=== PATIENT | female | born 1935 | race Caucasian/White ===

== ENCOUNTER 2019-07-19 04:20 | Observation (INO) ==
[2019-07-19] MEDS ORDERED: SODIUM CHLORIDE 0.9% 500 ML IV STA (04:40)
[2019-07-19 05:11] LABS: Basophils # 0.1 10*3/uL (0.0-0.2); Basophils % 0.9 % (0.0-0.8); Eosinophils # 0.1 10*3/uL (0.0-0.87); Eosinophils % 1.8 % (0.00-10.9); Hematocrit 30.7 VOL% (35.7-47.0); Hemoglobin 9.4 GM/DL (12.0-16.0); Immature Granulocytes % 0.4 %; Immature Granulocytes Absolute 0.02 #; Lymphocytes # 1.2 10*3/uL (1.4-4.0); Lymphocytes % 20.7 % (21.3-54.2); Mean Corpuscular HGB Conc 30.6 GM/DL (32-36); Mean Corpuscular Volume 88.2 FL (87-102); Mean Platelet Volume 9.3 FL (9.6-12.0); Monocytes % 8.3 % (1.7-12.7); Neutrophils % 67.9 % (38.7-73.9); Platelet Count 187 T/CUMM (130-400); Red Blood Count 3.48 MC/CUMM (3.8-5.5); Red Cell Distribution Width 14.6 % (9.3-17.3); White Blood Count 5.6 T/CUMM (4-12)
[2019-07-19 05:14] LABS: PT Patient Result 10.9 SECS (9.6-12.2)
[2019-07-19 05:28] LABS: Alanine Aminotransferase 17 U/L (13-56); Albumin 3.8 G/DL (3.4-5.0); Alkaline Phosphatase 97 U/L (45-117); Aspartate Amino Transferase 20 U/L (0-37); Blood Urea Nitrogen 26 MG/DL (7-18); Calcium 8.7 MG/DL (8.5-10.1); Estimated Glom Filtration Rate 43 ML/MIN; Glucose 115 MG/DL (74-106); Osmolality,Calculated 278.8 MOS/KG (273-304); Total Protein 6.8 G/DL (6.4-8.3)
[2019-07-19 06:06] LABS: Apearance,Urine CLEAR (Clear); Bacteria,Urine Occasional /HPF (Few); Bilirubin,Urine Negative (Negative); Blood, Urine Small mg/dL (Negative); Glucose,Urine (UA) Negative (Negative); Ketones,Urine 5 mg/dL (Negative); Mucus,Urine Occasional /LPF (Occasional); Nitrite,Urine Negative (Negative); Protein,Urine Negative; RBC,Urine 5 /HPF (0-4); Squamous Epithelial Cell,Urine Occasional /HPF (0-10); Urine Color Yellow (Yellow); Urine Specific Gravity 1.011 (1.001-1.035); Urine Urobilinogen < 2.0 EU/DL (0.2-1.0); WBC,Urine 8 /HPF (0-6)
[2019-07-19 06:12] LABS: Barbiturates Screen,Urine Negative (Negative); Benzodiazepines Screen,Urine Negative (Negative); Cannabinoid Screen,Urine Negative (Negative); Opiate Screen,Urine Negative (Negative); Phencyclidine Screen,Urine Negative (Negative)
[2019-07-19] MEDS ORDERED: ONDANSETRON 4 MG/2 ML VIAL IV PRN (06:15)
[2019-07-19] MEDS ORDERED: ACETAMINOPHEN 325 MG TABLET PO PRN (06:15)
[2019-07-19] MEDS ORDERED: BISACODYL 5 MG TABLET PO PRN (06:15)
[2019-07-19] MEDS ORDERED: SODIUM CHLORIDE 0.9% 1,000 ML IV SCH (07:00)
[2019-07-19] MEDS: cefTRIAXone 1,000 MG in SYRINGE 1 EACH IV SCH (07:17)
[2019-07-19] MEDS ORDERED: ZALEPLON 5 MG CAPSULE PO PRN (14:57)
[2019-07-19] MEDS: OLANZapine 2.5 MG TABLET PO SCH (15:13)
[2019-07-19] MEDS: carvediloL 12.5 MG TABLET PO SCH ×2 (15:13→17:41)
[2019-07-19] MEDS ORDERED: LORazepam 2 MG/1 ML VIAL IV ONE (16:48)
[2019-07-20] MEDS: lisinopriL 5 MG TABLET PO SCH ×2 (02:44→21:04)
[2019-07-20] MEDS: MULTIVITAMIN (INTRINSIC) CAPSULE PO SCH ×3 (02:44→21:33)
[2019-07-20] MEDS: OLANZapine 2.5 MG TABLET PO SCH ×4 (02:44→21:04)
[2019-07-20] MEDS: AMIODARONE 200 MG TABLET PO SCH ×3 (02:44→21:05)
[2019-07-20] MEDS: OXcarbazepine 300 MG TABLET PO SCH ×3 (02:44→21:05)
[2019-07-20] MEDS: cefTRIAXone 1,000 MG in SYRINGE 1 EACH IV SCH (06:14)
[2019-07-20 06:19] LABS: Basophils % 0.7 % (0.0-0.8); Eosinophils # 0.2 10*3/uL (0.0-0.87); Eosinophils % 3.4 % (0.00-10.9); Hematocrit 32.2 VOL% (35.7-47.0); Hemoglobin 9.9 GM/DL (12.0-16.0); Immature Granulocytes % 0.2 %; Immature Granulocytes Absolute 0.01 #; Lymphocytes # 1.4 10*3/uL (1.4-4.0); Lymphocytes % 31.5 % (21.3-54.2); Mean Corpuscular HGB Conc 30.7 GM/DL (32-36); Mean Corpuscular Volume 88.5 FL (87-102); Mean Platelet Volume 9.3 FL (9.6-12.0); Neutrophils % 53.2 % (38.7-73.9); Platelet Count 175 T/CUMM (130-400); Red Blood Count 3.64 MC/CUMM (3.8-5.5); Red Cell Distribution Width 14.3 % (9.3-17.3); White Blood Count 4.5 T/CUMM (4-12)
[2019-07-20 07:04] LABS: Calcium 8.7 MG/DL (8.5-10.1); Osmolality,Calculated 281.4 MOS/KG (273-304)
[2019-07-20] MEDS: ATORVASTATIN 40 MG TABLET PO SCH (10:40)
[2019-07-20] MEDS: POTASSIUM CHLORIDE 20 MEQ TABLET PO SCH (10:40)
[2019-07-20] MEDS: ASPIRIN EC 325 MG TABLET PO SCH (10:40)
[2019-07-20] MEDS: DONEPEZIL 5 MG TABLET PO SCH (10:41)
[2019-07-20] MEDS: carvediloL 12.5 MG TABLET PO SCH ×2 (10:41→16:46)
[2019-07-20] MEDS: hydroCHLOROthiazide 12.5 MG CAPSULE PO SCH (10:41)
[2019-07-20] MEDS ORDERED: LORazepam 0.5 MG TABLET PO ONE (15:38)
[2019-07-21] MEDS: cefTRIAXone 1,000 MG in SYRINGE 1 EACH IV SCH (06:36)
[2019-07-21 07:55] VITALS: BP 112/43
[2019-07-21] MEDS: MULTIVITAMIN (INTRINSIC) CAPSULE PO SCH (08:14)
[2019-07-21] MEDS: OXcarbazepine 300 MG TABLET PO SCH (08:14)
[2019-07-21] MEDS: POTASSIUM CHLORIDE 20 MEQ TABLET PO SCH (08:15)
[2019-07-21] MEDS: carvediloL 12.5 MG TABLET PO SCH (08:15)
[2019-07-21] MEDS: OLANZapine 2.5 MG TABLET PO SCH (08:15)
[2019-07-21] MEDS: ATORVASTATIN 40 MG TABLET PO SCH (08:15)
[2019-07-21] MEDS: AMIODARONE 200 MG TABLET PO SCH (08:15)
[2019-07-21] MEDS: ASPIRIN EC 325 MG TABLET PO SCH (08:15)
[2019-07-21] MEDS: hydroCHLOROthiazide 12.5 MG CAPSULE PO SCH (08:15)
[2019-07-21] MEDS: DONEPEZIL 5 MG TABLET PO SCH (08:15)
== END 2019-07-21 12:10 ==
LOC: EDUNIT# → EDBD → N.ED 04:20 → N.EDINP 04:20 → N.4E 07:11
PROVIDERS: ADMIT Internal Medicine; ATTEND Internal Medicine

== ENCOUNTER 2019-08-08 21:07 | Observation (INO) ==
[2019-08-08] MEDS ORDERED: OLANZapine 5 MG TABLET PO ONE (21:27)
[2019-08-08] MEDS ORDERED: OLANZapine 5 MG TABLET PO PRN (23:00)
[2019-08-09] MEDS ORDERED: CALCIUM CARBONATE CHEW 500 MG TABLET PO PRN (00:30)
[2019-08-09] MEDS ORDERED: hydrALAZINE 20 MG/1 ML VIAL IV PRN (00:30)
[2019-08-09] MEDS ORDERED: ONDANSETRON 4 MG/2 ML VIAL IV PRN (00:30)
[2019-08-09] MEDS ORDERED: diphenhydrAMINE CAP 25 MG CAPSULE PO PRN (00:30)
[2019-08-09] MEDS ORDERED: ACETAMINOPHEN 325 MG TABLET PO PRN (00:30)
[2019-08-09] MEDS ORDERED: NICOTINE 21 MG/24 HR PATCH TRANSDERM PRN (00:30)
[2019-08-09] MEDS ORDERED: OLANZapine 5 MG TABLET PO PRN (01:27)
[2019-08-09] MEDS ORDERED: SODIUM CHLORIDE 0.9% 1,000 ML IV SCH (07:00)
[2019-08-09 07:01] LABS: Basophils # 0.1 10*3/uL (0.0-0.2); Eosinophils # 0.2 10*3/uL (0.0-0.87); Eosinophils % 3.1 % (0.00-10.9); Hematocrit 28.8 VOL% (35.7-47.0); Hemoglobin 8.8 GM/DL (12.0-16.0); Immature Granulocytes % 0.5 %; Immature Granulocytes Absolute 0.03 #; Lymphocytes # 1.7 10*3/uL (1.4-4.0); Lymphocytes % 28.7 % (21.3-54.2); Mean Corpuscular HGB Conc 30.6 GM/DL (32-36); Mean Corpuscular Volume 88.6 FL (87-102); Monocytes % 8.7 % (1.7-12.7); Platelet Count 251 T/CUMM (130-400); Red Blood Count 3.25 MC/CUMM (3.8-5.5); Red Cell Distribution Width 15.6 % (9.3-17.3); White Blood Count 5.9 T/CUMM (4-12)
[2019-08-09 07:31] LABS: Albumin 3.2 G/DL (3.4-5.0); Bilirubin,Total 0.4 MG/DL (0.2-1.0); Calcium 8.3 MG/DL (8.5-10.1); Total Protein 6.5 G/DL (6.4-8.3)
[2019-08-09 10:10] LABS: Apearance,Urine CLEAR (Clear); Bacteria,Urine Occasional /HPF (Few); Bilirubin,Urine Negative (Negative); Blood, Urine Negative (Negative); Glucose,Urine (UA) Negative (Negative); Ketones,Urine Negative (Negative); Mucus,Urine Occasional /LPF (Occasional); Nitrite,Urine Negative (Negative); Protein,Urine Negative; RBC,Urine 2 /HPF (0-4); Squamous Epithelial Cell,Urine Occasional /HPF (0-10); Urine Color Yellow (Yellow); Urine Specific Gravity 1.013 (1.001-1.035); Urine Urobilinogen < 2.0 EU/DL (0.2-1.0); WBC,Urine 1 /HPF (0-6)
[2019-08-09] MEDS ORDERED: POTASSIUM CHLORIDE 20 MEQ TABLET PO SCH (11:30)
[2019-08-09 11:40] VITALS: BP 142/73
[2019-08-09] MEDS ORDERED: LORazepam 0.5 MG TABLET PO PRN (14:03)
[2019-08-09] MEDS ORDERED: OLANZapine 2.5 MG TABLET PO SCH (15:00)
[2019-08-09] MEDS ORDERED: carvediloL 25 MG TABLET PO SCH (17:00)
[2019-08-09] MEDS ORDERED: traZODone 50 MG TABLET PO SCH (21:00)
[2019-08-09] MEDS ORDERED: OXcarbazepine 300 MG TABLET PO SCH (21:00)
[2019-08-10] MEDS ORDERED: lisinopriL 5 MG TABLET PO SCH (09:00)
[2019-08-10] MEDS ORDERED: AMIODARONE 200 MG TABLET PO SCH (09:00)
[2019-08-10] MEDS ORDERED: hydroCHLOROthiazide 12.5 MG CAPSULE PO SCH (09:00)
[2019-08-10] MEDS ORDERED: ATORVASTATIN 40 MG TABLET PO SCH (09:00)
[2019-08-10] MEDS ORDERED: DONEPEZIL 10 MG TABLET PO SCH (09:00)
== END 2019-08-09 16:22 ==
LOC: EDUNIT# → EDBD → N.EDINP 21:07 → N.ED 21:07 → N.2E 22:03
PROVIDERS: ADMIT Internal Medicine; ATTEND Internal Medicine